=== PATIENT | female | born 1955 | race Two or more races ===

== ENCOUNTER 2019-06-04 20:31 | Emergency (ER) | payer OTHER ==
[~2019-06-04] VITALS: Ht 165.1 cm; Wt 79.4 kg
[2019-06-04 20:53] VITALS: BP 135/61
[2019-06-04 21:27] LABS: Basophils # (auto) 0.2 uL; Basophils % (auto) 2.2 % (0.0-2.0); Eosinophils # (auto) 0.7 uL; Eosinophils % (auto) 9.1 % (0.0-7.0); Hematocrit 37.3 % (36.0-46.0); Hemoglobin 12.4 g/dL (12.2-16.2); Lymphocytes # (auto) 1.6 uL; Lymphocytes % (auto) 22.6 % (10.0-50.0); Mean Corpuscular Hgb Conc. 33.2 g/dL (32.0-36.0); Mean Corpuscular Volume 87.2 fL (80.0-100.0); Monocytes # (auto) 0.5 uL; Monocytes % (auto) 7.2 % (0.0-12.0); Neutrophils # (auto) 4.3 uL; Neutrophils % (auto) 58.9 % (37.0-80.0); Platelet Count (auto) 235 10^3/uL (140-450); Red Blood Cells 4.28 10^6/uL (4.0-5.20); Red Cell Distribution Width 16.2 % (11.8-14.3); White Blood Cell 7.3 10^3/uL (4.4-10.8)
[2019-06-04 21:45] LABS: Albumin 3.5 g/dL (3.4-5.0); BUN/Creatinine Ratio 21.5; Potassium 4.1 mmol/L (3.5-5.1)
[2019-06-04 21:52] LABS: Bilirubin, Total 0.4 mg/dL (0.2-1.0); Total Protein 7.7 g/dL (6.4-8.2)
== END 2019-06-04 23:40 | disposition left against medical advice (07) ==
LOC: EDBD 20:31 → ER 20:34
DX: R07.89 Other chest pain (principal); R10.9 Unspecified abdominal pain; Z53.21 Procedure and treatment not carried out due to patient leaving prior to being seen by health care provider
CPT/HCPCS: 36415; 74176; 80053; 82150; 83690; 84484; 85025; 93005